=== PATIENT | female | born 1945 | race Two or more races ===

== ENCOUNTER 2021-09-17 20:05 | Emergency (ER) | payer OTHER ==
[~2021-09-17] VITALS: Ht 157.5 cm; Wt 74.8 kg
[2021-09-18] MEDS ORDERED: ACETAMINOPHEN 500 MG TAB PO ONE (01:45)
[2021-09-18 02:10] VITALS: BP 130/55
[2021-09-18] MEDS ORDERED: BACITRACIN INJ 50000 UNIT VIAL TOP ONE (02:15)
[2021-09-18] MEDS ORDERED: NEOMYCIN-BACITRACIN-POLYM UNITDOSE PKG TOP OINT TOP ONE (02:15)
[2021-09-18] MEDS ORDERED: LIDOCAINE 1% HCL (LOCAL ANESTH.) INJ 20ML MDV ID ONE (02:30)
[2021-09-18] MEDS ORDERED: BACITRACIN TOP OINT 1 UD PKG TOP ONE (02:30)
[2021-09-18] MEDS ORDERED: cefTRIAXone SOD 1,000 MG VL IM ONE (03:00)
== END 2021-09-18 03:23 | disposition home or self-care (01) ==
LOC: ER 20:05
DX: S01.81XA Laceration without foreign body of other part of head, initial encounter (principal); M25.562 Pain in left knee; M25.532 Pain in left wrist; M25.552 Pain in left hip; I10 Essential (primary) hypertension; E78.5 Hyperlipidemia, unspecified; W18.39XA Other fall on same level, initial encounter; Y93.89 Activity, other specified; Y92.89 Other specified places as the place of occurrence of the external cause; Y99.8 Other external cause status
CPT/HCPCS: 12013; 70450; 70486; 72170; 73030; 73090; 73110; 73562; 96372; 99284; J0696; J2001

== ENCOUNTER 2024-02-10 22:48 | Emergency (ER) | payer OTHER ==
[~2024-02-10] VITALS: Ht 157.5 cm; Wt 75.0 kg
[2024-02-11 04:40] VITALS: BP 138/65; PULSE 76; RESP 18; TEMP 98; O2SAT 100
== END 2024-02-11 06:58 | disposition home or self-care (01) ==
LOC: ER 22:48
DX: S01.81XA Laceration without foreign body of other part of head, initial encounter (principal); M79.18 Myalgia, other site; I10 Essential (primary) hypertension; E78.5 Hyperlipidemia, unspecified; Z90.710 Acquired absence of both cervix and uterus; W01.0XXA Fall on same level from slipping, tripping and stumbling without subsequent striking against object, initial encounter; Y93.89 Activity, other specified; Y92.89 Other specified places as the place of occurrence of the external cause; Y99.8 Other external cause status
CPT/HCPCS: 12013; 70450; 70486; 72125